=== PATIENT | female | born 1990 | race Caucasian/White ===

== ENCOUNTER 2020-04-27 05:42 | Inpatient (IN) ==
[2020-04-27] MEDS ORDERED: Naloxone 0.4 MG/ML INJ IVP PRN (05:47)
[2020-04-27] MEDS ORDERED: Metoclopramide 10 MG/2 ML VIAL IVP PRN ×2 (05:47→12:22)
[2020-04-27] MEDS ORDERED: Famotidine 20 MG/2 ML VIAL IVP PRN (05:47)
[2020-04-27] MEDS ORDERED: Ringers Solution, Lactated 1,000 ML IVC SCH (06:00)
[2020-04-27] MEDS ORDERED: CeFAZolin 2,000 MG/50 ML BAG IVPB ONE (06:00)
[2020-04-27 06:24] LABS: Basophils % 0.2 %; Eosinophils # 0.1 K/mcL (0.0-0.6); Eosinophils % 0.8 %; Hematocrit 38.8 % (35.3-44.9); Hemoglobin 12.9 g/dL (11.5-15.4); Immature Granulocytes % 0.5 % (0-4); Lymphocytes # 2.7 K/mcL (0.6-4.6); Lymphocytes % 20.6 %; Mean Corpuscular HGB Conc 33.2 g/dL (31.6-35.5); Mean Corpuscular Hemoglobin 26.5 pg (28.0-33.3); Mean Corpuscular Volume 79.7 fL (83.0-100.0); Mean Platelet Volume 11.6 fL (9.4-12.4); Monocytes # 0.7 K/mcL (0.0-1.3); Monocytes % 5.5 %; Neutrophils # 9.6 K/mcL (1.6-8.9); Platelet Count 228 K/mcL (140-400); Red Blood Count 4.87 M/mcL (3.82-4.97); Red Cell Distribution Width 15.7 % (11.5-14.5); Segmented Neutrophils % 72.4 %; White Blood Count 13.3 K/mcL (4.3-11.1)
[2020-04-27] MEDS ORDERED: *HR* Midazolam HCl 2 MG/2 ML VIAL ONE (06:39)
[2020-04-27] MEDS ORDERED: *HR* Morphine Sulfate/PF 10 MG/10 ML AMPUL ONE (06:40)
[2020-04-27] MEDS ORDERED: *HR* FentaNYL (PF) 100 MCG/2 ML VIAL ONE (06:40)
[2020-04-27] MEDS ORDERED: Acetaminophen IV 1,000 MG/100 ML BAG IVPB ONE (09:00)
[2020-04-27 09:06] LABS: Amphetamine Screen,Urine Negative ng/mL (Cutoff=1000); Barbiturate Screen,Urine Negative ng/mL (Cutoff=200); Benzodiazepines Screen,Urine Negative ng/mL (Cutoff=200); Cannabinoid Screen,Urine Negative ng/mL (Cutoff = 50); Cocaine Screen,Urine Negative ng/mL (Cutoff= 300); Opiate Screen,Urine Negative ng/mL (Cutoff=300); Phencyclidine Screen,Urine Negative ng/mL (Cutoff=25)
[2020-04-27] MEDS ORDERED: Ondansetron 4 MG/2 ML VIAL IVP PRN ×2 (09:07→12:22)
[2020-04-27] MEDS ORDERED: *HR* HYDROmorphone (PF) 1 MG/ML SYRINGE IVP PRN (09:11)
[2020-04-27] MEDS ORDERED: *HR* Oxytocin 10 UNIT/ML VIAL IM ONE (09:14)
[2020-04-27] MEDS ORDERED: Oxytocin 20 units/ LR 1000 mL 20 UNIT/1,000 ML BAG IVC ONE ×2 (09:40→11:14)
[2020-04-27] MEDS ORDERED: *HR* HYDROMORPHONE 2 MG/ML VIAL ONE (11:56)
[2020-04-27] MEDS ORDERED: Rho Immune Globulin 1,500 UNIT SYRINGE IM ONE (12:22)
[2020-04-27] MEDS ORDERED: Oxytocin 20 units/ LR 1000 mL 20 UNIT/1,000 ML BAG IVC SCH ×2 (12:22)
[2020-04-27] MEDS ORDERED: Sennosides 8.6 MG TABLET PO PRN (12:22)
[2020-04-27] MEDS ORDERED: Simethicone 80 MG TAB.CHEW PO PRN (12:22)
[2020-04-27] MEDS ORDERED: ceFAZolin 1,000 MG in Water for inj. (sterile) 10 ML IVP SCH (16:00)
[2020-04-27] MEDS: ceFAZolin 1,000 MG in 0.9 % Sodium Chloride Mini Bag 100 ML IVPB SCH (16:25)
[2020-04-27] MEDS: Ibuprofen 600 MG TABLET PO PRN ×2 (16:30→21:51)
[2020-04-28] MEDS: ceFAZolin 1,000 MG in 0.9 % Sodium Chloride Mini Bag 100 ML IVPB SCH (01:25)
[2020-04-28 03:56] LABS: Basophils % 0.1 %; Eosinophils % 0.1 %; Immature Granulocytes % 0.4 % (0-4); Lymphocytes % 18.8 %; Mean Corpuscular HGB Conc 32.4 g/dL (31.6-35.5); Mean Corpuscular Hemoglobin 26.8 pg (28.0-33.3); Mean Corpuscular Volume 82.7 fL (83.0-100.0); Mean Platelet Volume 11.5 fL (9.4-12.4); Monocytes % 6.3 %; Neutrophils # 11.8 K/mcL (1.6-8.9); Platelet Count 199 K/mcL (140-400); Red Blood Count 4.11 M/mcL (3.82-4.97); Red Cell Distribution Width 15.7 % (11.5-14.5); Segmented Neutrophils % 74.3 %; White Blood Count 15.9 K/mcL (4.3-11.1)
[2020-04-28] MEDS: Ibuprofen 600 MG TABLET PO PRN (04:34)
[2020-04-28 06:19] VITALS: BP 128/87
[2020-04-28] MEDS: *HR* OxyCODONE/APAP 5/325 TABLET PO PRN ×2 (08:04→13:42)
[2020-04-28] MEDS ORDERED: Prenatal Vit/FA 1 EACH TABLET PO SCH (09:00)
== END 2020-04-28 15:30 | disposition home or self-care (01) | DRG 788 ==
LOC: 1NENULAB 05:42 → 1NENUOBS 11:49
PROVIDERS: ADMIT Obstetrics & Gynecology; ATTEND Obstetrics & Gynecology